=== PATIENT | male | born 1950 | race Caucasian/White ===

== ENCOUNTER 2019-01-30 08:44 | Inpatient (IN) | payer MEDICARE ==
[~2019-01-30] VITALS: Ht 175.3 cm; Wt 105.2 kg
[~2019-01-30 08:44] MED LIST: HYDR-4134 PO; INSLAN SQ; IPRA3AMP9 IH; ISOS10TA2 PO; LINA5TAB PO; POTA20TA82 PO; TEMA15CA PO
[2019-01-30 15:46] VITALS: BP 127/66
[2019-01-30 16:00] VITALS: BP 124/70
[2019-01-30] MEDS: LEVOTHYROXINE SODIUM 50MCG TABLET PO SCH (16:30)
[2019-01-30] MEDS ORDERED: PNEUMOCOCCAL 23-VAL P-SAC VAC 0.5 ML IM ONE (16:45)
[2019-01-30 18:00] VITALS: BP 125/73
[2019-01-30] MEDS: FUROSEMIDE 40MG/4ML VIAL IVP SCH (19:24)
[2019-01-30 19:36] LABS: BASOPHILS % 0.7 % (0.0-2.0); EOSINOPHILS % 2.7 % (0.0-5.0); HEMATOCRIT. 38.7 % (42.0-52.0); HEMOGLOBIN. 12.9 g/dL (14.0-18.0); MEAN CORPUSCULAR HEMOGLOBIN 29.5 pg (28.0-32.0); MEAN CORPUSCULAR VOLUME 88.6 fL (80.0-94.0); MONOCYTES % 9.7 % (2.0-8.0); NEUTROPHILS % 75.9 % (40.0-76.0); PLATELET 237 x1000/uL (130-400); RED BLOOD CELL COUNT 4.37 mill/uL (4.7-6.1); RED CELL DISTRIBUTION WIDTH 14.5 % (11.6-14.6)
[2019-01-30 19:43] LABS: CHLORIDE 112 mEq/L (98-107)
[2019-01-30 19:44] LABS: INR 1.2; PARTIAL THROMBOPLASTIN TIME 31.1 sec (23.4-31.0); PROTHROMBIN TIME 12.3 sec (9.6-11.0)
[2019-01-30 20:00] VITALS: BP 130/62
[2019-01-30] MEDS: ATORVASTATIN CALCIUM 10MG TABLET PO SCH (20:43)
[2019-01-30 22:00] VITALS: BP 128/63
[2019-01-30] MEDS ORDERED: POTA20TA12 PO (23:47)
[2019-01-30] MEDS ORDERED: LEVO50TA PO (23:47)
[2019-01-30] MEDS ORDERED: ENAL20TA67 PO (23:47)
[2019-01-30] MEDS ORDERED: FURO-151 MT (23:47)
[2019-01-30] MEDS ORDERED: ATOR10TA PO (23:47)
[2019-01-30] MEDS ORDERED: LINA72CA PO (23:47)
[2019-01-30] MEDS ORDERED: VIAG50 PO (23:47)
[2019-01-30] MEDS ORDERED: ASPI-1158 PO (23:47)
[2019-01-30] MEDS ORDERED: CHOL100022 PO (23:47)
[2019-01-31] VITALS (12 sets, daily range): BP systolic 114–155; BP diastolic 58–71
[2019-01-31] MEDS: LEVOTHYROXINE SODIUM 50MCG TABLET PO SCH (06:09)
[2019-01-31] MEDS ORDERED: ASPIRIN 325MG EC TABLET PO SCH (09:00)
[2019-01-31] MEDS: FUROSEMIDE 40MG/4ML VIAL IVP SCH ×2 (09:03→17:20)
[2019-01-31] MEDS ORDERED: ENOXAPARIN 120MG/0.8ML SYR SUBCUT NR (09:45)
[2019-01-31 09:47] LABS: BASOPHILS % 0.6 % (0.0-2.0); EOSINOPHILS % 3.2 % (0.0-5.0); HEMATOCRIT. 37.2 % (42.0-52.0); HEMOGLOBIN. 12.4 g/dL (14.0-18.0); LYMPHOCYTES % 11.1 % (20.0-50.0); MEAN CORPUSCULAR HEMOGLOBIN 29.6 pg (28.0-32.0); MEAN CORPUSCULAR VOLUME 88.4 fL (80.0-94.0); MEAN PLATELET VOLUME 9.5 fl (7.4-10.4); MONOCYTES % 10.7 % (2.0-8.0); NEUTROPHILS % 74.4 % (40.0-76.0); PLATELET 220 x1000/uL (130-400); RED BLOOD CELL COUNT 4.21 mill/uL (4.7-6.1); RED CELL DISTRIBUTION WIDTH 14.6 % (11.6-14.6)
[2019-01-31 09:52] LABS: CHLORIDE 112 mEq/L (98-107)
[2019-01-31 10:05] LABS: T4 FREE 1.53 ng/dL (0.76-1.46)
[2019-01-31] MEDS ORDERED: DEXTROSE 50% WATER 50ML SYRINGE IV PRN (15:15)
[2019-01-31] MEDS: INSULIN LISPRO 100 UNITS/ML SUBCUT SCH ×2 (17:20→21:00)
[2019-01-31] MEDS: BLOOD SUGAR DIAGNOSTIC STRIP TEST SCH ×2 (17:21→21:00)
[2019-01-31] MEDS: ATORVASTATIN CALCIUM 10MG TABLET PO SCH (22:21)
[2019-02-01] VITALS (10 sets, daily range): BP systolic 114–145; BP diastolic 53–80
[2019-02-01] MEDS: BLOOD SUGAR DIAGNOSTIC STRIP TEST SCH ×4 (06:31→21:00)
[2019-02-01] MEDS: LEVOTHYROXINE SODIUM 50MCG TABLET PO SCH (06:31)
[2019-02-01 07:03] LABS: BASOPHILS % 0.6 % (0.0-2.0); EOSINOPHILS % 3.9 % (0.0-5.0); HEMATOCRIT. 40.4 % (42.0-52.0); HEMOGLOBIN. 13.5 g/dL (14.0-18.0); LYMPHOCYTES % 11.2 % (20.0-50.0); MEAN CORPUSCULAR HEMOGLOBIN 29.7 pg (28.0-32.0); MEAN CORPUSCULAR VOLUME 88.9 fL (80.0-94.0); MEAN PLATELET VOLUME 9.4 fl (7.4-10.4); MONOCYTES % 11.4 % (2.0-8.0); NEUTROPHILS % 72.9 % (40.0-76.0); PLATELET 242 x1000/uL (130-400); RED BLOOD CELL COUNT 4.54 mill/uL (4.7-6.1); RED CELL DISTRIBUTION WIDTH 14.7 % (11.6-14.6)
[2019-02-01] MEDS: FUROSEMIDE 40MG/4ML VIAL IVP SCH ×2 (07:15→19:16)
[2019-02-01] MEDS: INSULIN LISPRO 100 UNITS/ML SUBCUT SCH ×4 (07:20→21:00)
[2019-02-01] MEDS ORDERED: LIDOCAINE HCL 1% 20ML VIAL (Pyxis) INJ ONE ×2 (09:26→09:28)
[2019-02-01] MEDS ORDERED: SODIUM BICARBONATE 4% (2.4MEQ) 5ML VIAL IV ONE (09:26)
[2019-02-01] MEDS ORDERED: GENTAMICIN SULF 40MG/ML 2ML VIAL ONE (09:27)
[2019-02-01] MEDS ORDERED: MIDAZOLAM HCL 2 MG/2 ML VIAL ONE ×2 (09:27→10:32)
[2019-02-01] MEDS ORDERED: FENTANYL CITRATE/PF 50MCG/ML 2ML VIAL ONE ×2 (09:28→10:32)
[2019-02-01] MEDS ORDERED: CEFAZOLIN 1000MG PREMIX 100 ML IV ONE (09:29)
[2019-02-01] MEDS ORDERED: KCL 20MEQ/100ML PREMIX 100 ML IV NR (09:30)
[2019-02-01] MEDS ORDERED: IODIXANOL 320MG/ML 100 ML BOTTLE IV ONE (10:12)
[2019-02-01] MEDS ORDERED: DIPHENHYDRAMINE 50MG/ML VIAL ONE (11:14)
[2019-02-01] MEDS ORDERED: HYDROCODONE/ACETAMINOPHEN 5/325MG TABLET PO PRN (13:15)
[2019-02-01] MEDS ORDERED: GENTAMICIN/NS IRRIGATION 500 ML IR ONE (13:25)
[2019-02-01] MEDS: ATORVASTATIN CALCIUM 10MG TABLET PO SCH (22:18)
[2019-02-02] VITALS (12 sets, daily range): BP systolic 127–149; BP diastolic 68–94
[2019-02-02] MEDS: LEVOTHYROXINE SODIUM 50MCG TABLET PO SCH (06:50)
[2019-02-02 06:51] LABS: BASOPHILS % 0.6 % (0.0-2.0); EOSINOPHILS % 2.6 % (0.0-5.0); HEMATOCRIT. 38.2 % (42.0-52.0); HEMOGLOBIN. 12.8 g/dL (14.0-18.0); MEAN CORPUSCULAR HEMOGLOBIN 29.5 pg (28.0-32.0); MEAN CORPUSCULAR VOLUME 88.1 fL (80.0-94.0); MEAN PLATELET VOLUME 9.2 fl (7.4-10.4); MONOCYTES % 12.6 % (2.0-8.0); NEUTROPHILS % 74.2 % (40.0-76.0); PLATELET 217 x1000/uL (130-400); RED BLOOD CELL COUNT 4.34 mill/uL (4.7-6.1); RED CELL DISTRIBUTION WIDTH 14.5 % (11.6-14.6)
[2019-02-02] MEDS: BLOOD SUGAR DIAGNOSTIC STRIP TEST SCH ×4 (06:52→21:05)
[2019-02-02] MEDS: INSULIN LISPRO 100 UNITS/ML SUBCUT SCH ×4 (07:20→21:00)
[2019-02-02] MEDS ORDERED: SODIUM BICARBONATE 4% (2.4MEQ) 5ML VIAL IV ONE (08:00)
[2019-02-02] MEDS ORDERED: LIDOCAINE HCL 1% 20ML VIAL (Pyxis) INJ ONE (08:00)
[2019-02-02] MEDS: FUROSEMIDE 40MG/4ML VIAL IVP SCH ×2 (08:20→16:53)
[2019-02-02 09:11] LABS: THYROID PEROXIDASE ANTIBODY 12 IU/mL (0-34)
[2019-02-02] MEDS: DOCUSATE SODIUM 100MG CAPSULE PO SCH ×2 (12:12→17:34)
[2019-02-02] MEDS: ATORVASTATIN CALCIUM 10MG TABLET PO SCH (21:04)
[2019-02-03] VITALS (10 sets, daily range): BP systolic 131–153; BP diastolic 70–93
[2019-02-03] MEDS: LEVOTHYROXINE SODIUM 50MCG TABLET PO SCH (06:17)
[2019-02-03] MEDS: FUROSEMIDE 40MG/4ML VIAL IVP SCH (06:17)
[2019-02-03] MEDS: BLOOD SUGAR DIAGNOSTIC STRIP TEST SCH ×2 (06:18→11:50)
[2019-02-03] MEDS: INSULIN LISPRO 100 UNITS/ML SUBCUT SCH ×2 (06:20→12:20)
[2019-02-03] MEDS: DOCUSATE SODIUM 100MG CAPSULE PO SCH (08:18)
[2019-02-03] MEDS ORDERED: APIX5TAB MT (13:30)
[2019-02-03] MEDS ORDERED: APIX5TAB PO (13:31)
[2019-02-03 17:06] LABS: THYROXINE BINDING GLOBULIN 23 ug/mL (13-39)
== END 2019-02-03 14:29 | disposition home or self-care (01) | DRG 242 ==
LOC: 3WST 08:44
PROVIDERS: ADMIT Specialist; ATTEND Specialist
PROC: 0JH606Z Insertion of Pacemaker, Dual Chamber into Chest Subcutaneous Tissue and Fascia, Open Approach (ICD-10-PCS; 2019-02-01)
PROC: 02H63JZ Insertion of Pacemaker Lead into Right Atrium, Percutaneous Approach (ICD-10-PCS; 2019-02-01)
PROC: 02HK3JZ Insertion of Pacemaker Lead into Right Ventricle, Percutaneous Approach (ICD-10-PCS; 2019-02-01)
PROC: B5171ZZ Fluoroscopy of Left Subclavian Vein using Low Osmolar Contrast (ICD-10-PCS; 2019-02-01)
PROC: 0W9G3ZZ Drainage of Peritoneal Cavity, Percutaneous Approach (ICD-10-PCS; principal; 2019-02-02)
DX: I49.5 Sick sinus syndrome (principal); J96.91 Respiratory failure, unspecified with hypoxia; I13.0 Hypertensive heart and chronic kidney disease with heart failure and stage 1 through stage 4 chronic kidney disease, or unspecified chronic kidney disease; I48.19 Other persistent atrial fibrillation; R18.8 Other ascites; I25.10 Atherosclerotic heart disease of native coronary artery without angina pectoris; E03.9 Hypothyroidism, unspecified; E11.22 Type 2 diabetes mellitus with diabetic chronic kidney disease; N18.3 Chronic kidney disease, stage 3 (moderate); E78.5 Hyperlipidemia, unspecified; I50.9 Heart failure, unspecified; E66.09 Other obesity due to excess calories; E88.81 Metabolic syndrome and other insulin resistance; I50.810 Right heart failure, unspecified; K74.60 Unspecified cirrhosis of liver; Z68.34 Body mass index [BMI] 34.0-34.9, adult; Z79.01 Long term (current) use of anticoagulants; Z79.4 Long term (current) use of insulin; Z86.74 Personal history of sudden cardiac arrest; Z95.5 Presence of coronary angioplasty implant and graft; Z79.82 Long term (current) use of aspirin; Z79.890 Hormone replacement therapy; Z71.3 Dietary counseling and surveillance; Z79.899 Other long term (current) drug therapy; Z95.0 Presence of cardiac pacemaker; Z88.8 Allergy status to other drugs, medicaments and biological substances
CPT/HCPCS: 33208; 36415; 49083; 71045; 75820; 76705; 80048; 80076; 82962; 83036; 83520; 83735; 84439; 84442; 84443; 84481; 84484; 86376; 93005; 93306; 93970; A4565; C1785; C1892; C1893; C1898; J0690; J1200; J1580; J1650; J1940; J2250; J3010; J3480; J3490; J7070; Q9967

== ENCOUNTER → 2024-06-05 | Day surgery (SDC) | payer MEDICARE ==
[~2024-06-05] VITALS: Ht 175.3 cm; Wt 102.1 kg
[~2024-06-05] MED LIST changes: +AMLO10TA80 PO; +APIX5TAB MT; +ATOR10TA PO; +BUPIVACAINE HCL/PF 0.5% (5MG/ML) 10ML ONE; +CARV25TA47 PO; +CHOL100022 PO; +ENAL20TA67 PO; +FENTANYL CITRATE/PF 50MCG/ML 5ML VIAL ONE; +GLYCOPYRROLATE 0.2 MG/ML 2ML VIAL IV PRN; +GLYCOPYRROLATE 0.2 MG/ML 2ML VIAL ONE; -HYDR-4134 PO; +HYDRALAZINE 20MG/ML VIAL IV PRN; +HYDROMORPHONE HCL/PF 1MG/ML INJ IV PRN; -ISOS10TA2 PO; +LABETALOL 5MG/ML 4ML INJ IV PRN; +LEVO100T9 PO; -LINA5TAB PO; +LINA72CA PO; +METF-414 PO; +NEOSTIGMINE METHYLSULFATE 1MG/ML 10 ML VIAL ONE; +ONDANSETRON HCL 4MG/2ML INJ IV PRN; -POTA20TA82 PO; +ROCURONIUM BROMIDE 10MG/ML VIAL 5ML IV ONE; +SKIN ADHESIVE 0.7 GM EA TOP ONE; -TEMA15CA PO
[2024-06-05 06:44] LABS: CLARITY URINE CLEAR (CLEAR); COLOR URINE YELLOW (YELLOW); GLUCOSE URINE 3+ (NEGATIVE); KETONES URINE NEGATIVE (NEGATIVE); LEUKOCYTE ESTERASE URINE NEGATIVE (NEGATIVE); NITRITE URINE NEGATIVE (NEGATIVE); OCCULT BLOOD URINE NEGATIVE (NEGATIVE); PROTEIN URINE NEGATIVE (NEGATIVE); SPECIFIC GRAVITY URINE 1.025 (1.005-1.030)
[2024-06-05 06:52] LABS: BASOPHILS % 0.4 % (0.0-2.0); EOSINOPHILS % 4.4 % (0.0-5.0); HEMATOCRIT. 44.8 % (42.0-52.0); HEMOGLOBIN. 14.9 g/dL (14.0-18.0); LYMPHOCYTES % 13.3 % (20.0-50.0); MEAN CORPUSCULAR HEMOGLOBIN 30.3 pg (28.0-32.0); MEAN CORPUSCULAR HGB CONC 33.3 g/dL (31.0-37.0); MEAN PLATELET VOLUME 8.9 fl (7.4-10.4); MONOCYTES % 10.8 % (2.0-8.0); NEUTROPHILS % 71.1 % (40.0-76.0); PLATELET 222 x1000/uL (130-400); RED BLOOD CELL COUNT 4.92 mill/uL (4.7-6.1); RED CELL DISTRIBUTION WIDTH 14.6 % (11.6-14.6); WHITE BLOOD COUNT 6.7 x1000/uL (4.5-11.0)
[2024-06-05 06:53] LABS: POTASSIUM 4.2 mEq/L (3.5-5.1)
[2024-06-05 06:54] LABS: CALCIUM 8.9 mg/dL (8.7-10.4)
[2024-06-05 06:59] LABS: CREATININE 1.3 mg/dL (0.6-1.3)
[2024-06-05 07:06] LABS: SQUAMOUS EPITHELIAL CELL URINE 1+ /lpf (RARE/1+)
[2024-06-05 07:07] LABS: BACTERIA URINE NONE SEEN; RBC URINE 0-2 /hpf (0-2); WBC URINE 0-2 /hpf (0-2)
[2024-06-05] MEDS: SODIUM CHLORIDE 0.9% 1,000 ML IV SCH (07:12)
== END | disposition home or self-care (01) ==
LOC: OR 06:09
PROVIDERS: ATTEND Surgery
DX: K42.9 Umbilical hernia without obstruction or gangrene (principal); I11.0 Hypertensive heart disease with heart failure; I50.9 Heart failure, unspecified; E11.9 Type 2 diabetes mellitus without complications; Z79.84 Long term (current) use of oral hypoglycemic drugs; Z79.899 Other long term (current) drug therapy; Z98.890 Other specified postprocedural states; Z82.49 Family history of ischemic heart disease and other diseases of the circulatory system
CPT/HCPCS: 49593; 88302; 80048; 81003; 82962; 85025; 36415; C1781; J3010; J0665; J3490 ×2; J2710